=== PATIENT | female | born 1950 | race Caucasian/White ===

== ENCOUNTER 2018-05-25 10:00 | Inpatient (IN) | payer MEDICARE, OTHER ==
[~2018-05-25] VITALS: Ht 149.9 cm; Wt 89.5 kg
[~2018-05-25 10:00] MED LIST: ABILIFY2 MG PO; AMBIEN 10MG10 MG PO; AMITRIPTYLINE H25 M1 PO; ATIVAN 1MG T1 MG/TAB PO; BIRTH CONTROL; CARAFATE 1GM1 G PO; CELEXA40 MG PO; CLOPIDOGREL; CYMBALTA; DONNATAL; FIBER CHOICE1 CTB PO; FLEXERIL10 MG PO; FORTAMET500 MG PO; GLUCOPHAGE500 MG/TAB PO; IMODIUM 2MG CAPS2 MG PO; IMODIUM2 MG PO; K-DUR20 MEQ PO; LASIX 20MG TABL20 MG PO; LASIX 80MG TABL80 MG PO; LEXAPRO20 MG PO; LORTAB 10/500 51 TAB; MS CONTIN 115 MG/TAB PO; MS CONTIN 330 MG/TAB PO; NORCO 325 MG-101 TAB PO; PERCOCET 325 MG1 TA2 PO; POTASSIUM CH2 MEQ/ML; PRINIVIL2.5 MG PO; PROBIOTIC PO; PROTONIX 40MG T40 MG PO; REMERON 15M15 MG/TA1 PO; TOPROL XL25 MG PO; VYTORIN; ZOCOR 20MG20 MG PO
[2018-07-04] VITALS (11 sets, daily range): BP systolic 99–146; BP diastolic 42–78; PULSE 67–86; TEMP 98–99.6
[2018-07-04] MEDS ORDERED: PLAVIX 75MG TAB75 MG PO (06:17)
[2018-07-04] MEDS ORDERED: NEURONTIN600 MG/TAB PO (06:17)
--- NOTE | 2018-07-04 10:05 | NUR ---
PATIENT BACK IN ROOM 328 POST OP. A&O. VSS. DENIES PAIN. PATIENT IS UNABLE TO MOVE BLE AT THIS TIME. RTK DRESSING IS CD&I WITH AQUACEL AND TECHNOL BRACE INPLACE. TEDS & SCD'S TO BLE. POSITIVE PEDAL PULSES TO BLE. PARKS TO DEPENDENT DRAINAGE WITH SMALL AMOUNTS OF CLEAR YELLOW URINE NOTED. IV FLUIDS INFUSING VIA PUMP INTO RIGHT WRIST. NO C/O N/V. LIQUIDS AT BEDSIDE. BS 126. HEAD TO TOE ASSESSMENT WNL. NO OTHER NEEDS. CALL LIGHT IN REACH.
--- NOTE | 2018-07-04 10:44 | NUR ---
Initial visit attempt; Agricultural Equipment Sales Manager visited with family while patient was in surgical procedure. Agricultural Equipment Sales Manager will follow up with patient later.
--- NOTE | 2018-07-04 11:25 | NUR ---
PATIENT REPORTS SPINAL IS WEARING OFF. RATES PAIN IN RLE AT 6/10. GAVE PRN ROXICODONE, TWO TABS.
--- NOTE | 2018-07-04 12:25 | NUR ---
PATIENT STILL C/O PAIN IN RLE RATED AT 7/10. PATIENT HAS EXTENSIVE CHRONIC PAIN HISTORY. GAVE PRN IV MORPHINE 4MG PER ORDER. REPOSITIONED RLE WITH PILLOW AND ICE PACK.
--- NOTE | 2018-07-04 14:23 | NUR ---
NARCISO peacock met with patient to discuss discharge plan. Also present was patient's daughter (Sofi) and patient's sister (Veronica). Patient lives alone in [place]. Patient's PCP is Dr. Guzman and she uses the [email or web address] in [place]. Patient has a walker and reports independence with ADLs prior to hospitalization. Patient and patient's daughter state that patient has a completed DPOA-HC at home and it designates patient's daughter. In response to surgeon's social human services assistants consult, Doc is recommending home health for physical therapy and custodial. Patient was agreeable to this. NARCISO peacock presented the list of agencies that serve [place] from the Medicare.gov website. Patient and patient's daughter and sister would like to do some research and ask around before choosing. SW to continue to follow.
--- NOTE | 2018-07-04 17:11 | NUR ---
PATIENT CALLED OUT C/O SUDDENT ONSET NAUSEA. ENTERED ROOM TO FIND PATIENT VOMITED LARGE AMOUNTS ALL OVER HERSELF, BED & FLOOR. PATIENT CLEANED UP WITH COMPLETE BED CHANGE. PATIENT REPORTS SHE FEELS FINE. PATIENT STILL C/O SEVERE PAIN IN RLE. PATIENT RECEIVING SCHEDULED AND PRN PAIN MEDS. CURRENTLY TO EARLY TO GET MORE.
--- NOTE | 2018-07-04 20:00 | NUR ---
REPORT RECEIVED. ASSUMED CARE OF PATIENT FOR MASTER COSMETOLOGIST. ASSESSMENT COMPLETE. C/O PAIN RATED 10/10 ON PAIN SCALE. RECEIVED TWO TABS OF NORCO PER DR ORDER, WILL MONITOR EFFECT. REPOSITIONED WITH RIGHT KNEE ELEVATED-ICE PACK APPLIED. DRESSING TO RIGHT KNEE-CLEAN/DRY/INTACT. TECHNOL BRACE ON. CALL LIGHT WITHIN REACH. BED IN LOW POSITION-WHEELS LOCKED. ENCOURAGED TO CALL FOR CONCERNS. WILL MONITOR.
--- NOTE | 2018-07-05 02:00 | NUR ---
ATTEMPT MADE TO STAND AT SIDE OF BED. REPORTING NAUSEA/LIGHTHEADED/DIZZY. DID SIT ON EDGE OF BED. TOLERATED THAT OKAY. REPOSITIONED BACK IN BED WITH PILLOW SUPPORT/TECHNOL BRACE/ICE. WILL MONITOR.
[2018-07-05 04:24] VITALS: BP 140/63; PULSE 90; TEMP 98.4
--- NOTE | 2018-07-05 04:30 | NUR ---
HAS ONLY RESTED THE LAST FEW HOURS OF THIS SHIFT. C/O 10/10 PAIN MOST OF THE NIGHT-MEDICATION INTERVENTIONS DONE, REPOSITIONED WITH PILLOW SUPPORT, ICE PACKS APPIED AND TECHNOL BRACE ON. PAIN DID GET BETTER AFTER THE LAST DOSE ON DILAUDID GIVEN. CALLED TO NURSE STATION C/O PAIN ABOUT THIRTY MINUTES AGO-RATED IT 6/10. AFTER GETTING ROXICODONE FROM OMNICELL AND RETURNING TO ROOM-RESTING EYES CLOSED-AUDIBLE SNORING. NO S/S OF PAIN NOTED. DID NOT GIVE DOSE OF ROXICODONE AT THIS TIME DUE TO HAVING NORCO, DILAUDID AND ANA CRISTINA EARLIER IN THE NIGHT. VS ARE STABLE. WILL MONITOR.
--- NOTE | 2018-07-05 06:30 | NUR ---
Reported on to RACHEL Estrada. Pt moaning and laying supine in bed alert and oriented x 4. Incision to right knee dressed with ARUNA Dunn. C/O 8/10 stabbing, constant pain to anterior-medial aspect of right knee. Leg elevated on pillow with ice applied to affected site. Bilateral thigh-high ESDRAS hose and SCDs on. Rodriguez catheter secured with 1350 ml of clear, yellow urine in catheter bag. IV to right wrist running patently with 25 ml/hr normal saline. INT to left wrist is CDI. Assessment as charted and VSS.
[2018-07-05 07:05] VITALS: BP 124/55; PULSE 77; TEMP 99
--- NOTE | 2018-07-05 07:08 | NUR ---
awake resting in bed, bedside shift report received from RACHEL Pope
[2018-07-05 07:24] LABS: HEMOGLOBIN 10.6 g/dl (12.5-16.0)
[2018-07-05 07:25] LABS: HEMATOCRIT 32.3 % (37.0-47.0)
--- NOTE | 2018-07-05 08:00 | NUR ---
reassessed pain at 8/10 to right knee anterior. Pt requested pain medication for pain management. Scheduled MS Contin given. ESDRAS hose and SCDs removed bilaterally and patient assisted to recliner, legs elevated, ice applied to affected site and call light within reach.
--- NOTE | 2018-07-05 08:30 | NUR ---
assisted up to recliner by student nurse, tolerated fair
--- NOTE | 2018-07-05 09:42 | NUR ---
physical therapy in to work with patient, ambulated only short distance and then back to recliner
--- NOTE | 2018-07-05 09:45 | NUR ---
full assessment was completed, have reviewed assessment completed by student and in agreement with that assessment
--- NOTE | 2018-07-05 10:15 | NUR ---
Reassessed pain at 10/10 to right knee and assisted patient from recliner to bed, legs elevated on pillow, ice applied and call light within reach. Pain assessment reported to nurse.
--- NOTE | 2018-07-05 10:42 | NUR ---
resting in bed and c/o pain 10/28, medicated with hydrocodone 2.5mg 2 tabs
--- NOTE | 2018-07-05 11:26 | NUR ---
appears to be sleeping, in bed with eyes closed, resp quiet and easy
[2018-07-05 12:23] VITALS: BP 153/65; PULSE 82; TEMP 99.2
--- NOTE | 2018-07-05 12:33 | NUR ---
awake now and visiting with friends, continues to c/o pain and explained it is too early for pain meds, verbalizes understanding
--- NOTE | 2018-07-05 13:06 | NUR ---
NARCISO student met with patient to discuss home health options. Patient was still talking to some friends about different agencies and not ready to make a decision yet. Patient is staying tonight again so NARCISO student will follow up tomorrow.
--- NOTE | 2018-07-05 13:48 | NUR ---
Patient's daughter (Sofi) contacted NARCISO peacock via phone to discuss discharge plan. Patient and family are wanting to pursue SNF or swing bed now instead of home health. Patient feels unsafe to return home with only HH and cannot afford private duty services. NARCISO peacock informed patient's daughter of Medicare's policy regarding inpatient status and knee replacements and covering a skilled stay. Daughter was familiar as she works at [employer]. NARCISO peacock informed Christine (small machine bindery operator) of the new plan for a skilled stay. Christine is to contact patient's daughter to discuss. NARCISO to continue to follow.
--- NOTE | 2018-07-05 14:00 | NUR ---
ambulated back to room after therapy and into recliner, medicated with roxicodone 10mg for c/os pain 12/19, sadler catheter discontinue
--- NOTE | 2018-07-05 15:00 | NUR ---
called asking to go into bathroom, assisted into bathroom and voided qs then ambulated out of bathroom and into bed, moves with steady gait and only needed minimal assistance
--- NOTE | 2018-07-05 15:01 | NUR ---
NARCISO student met with patient to discuss post-acute rehab. Patient was agreeable if able to go. NARCISO student presented and explained the patient choice form. Patient verbalized understanding and signed. Patient chose 1) [facility] 2) [facility] and 3) [facility]. NARCISO student faxed referral to all three facilities. SW to continue to follow.
[2018-07-05 15:38] VITALS: BP 149/60; PULSE 81; TEMP 99
--- NOTE | 2018-07-05 17:02 | NUR ---
appears to be sleeping and awakened and given pm meds and c/o pain 10/28, medicated with hydrocodone 7.5mg 2 tabs
--- NOTE | 2018-07-05 18:54 | NUR ---
bedside shift report given to RACHEL Pope
[2018-07-05 20:46] VITALS: BP 130/53; PULSE 81; TEMP 99.6
[2018-07-06 04:38] VITALS: BP 141/69; PULSE 94; TEMP 98.2
--- NOTE | 2018-07-06 06:00 | NUR ---
HAS SLEPT MOST OF THE NIGHT WITH MINIMAL C/O PAIN. DID AMBULATE X1 LAST NIGHT WITH WALKER AND STANDBY ASSIST-APPROX 100 FEET-TOLERATED WELL. VOIDING WELL. UP TO BATHROOM AT THIS TIME. ESDRAS HOSE AND SCDS OFF. RATING PAIN 10/10 AFTER TRIP TO BATHROOM. ANGELINA TWO TABS GIVEN PER DR ORDER. ASSISTED BACK TO BED. WILL CONTINUE TO MONITOR.
[2018-07-06 06:57] LABS: HEMATOCRIT 32.4 % (37.0-47.0); HEMOGLOBIN 10.4 g/dl (12.5-16.0)
[2018-07-06 08:22] VITALS: BP 137/65; PULSE 86; TEMP 98.9
--- NOTE | 2018-07-06 08:28 | NUR ---
[facility] contacted student to inform that they have no female beds available at this time. NARCISO to check back in on Tuesday and continue to follow.
--- NOTE | 2018-07-06 08:29 | NUR ---
IV FROM RIGHT WRIST REMOVED PER PATIENT REQUEST. ADDITIONAL IV IN LEFT FOREARM STILL INTACT WITH NO PROBLEMS NOTED
[2018-07-06 12:17] VITALS: BP 131/53; PULSE 80; TEMP 98.1
--- NOTE | 2018-07-06 12:53 | NUR ---
Jill Beck is faxing an application for patient to fill out. [facility] is still waiting to see if their physician can follow, they are full currently but may have an opening by tomorrow. SW student to update patient and continue to follow.
--- NOTE | 2018-07-06 13:37 | NUR ---
Reported off to primary nurse Patricia RN.
--- NOTE | 2018-07-06 15:50 | NUR ---
SW provided [facility] application to patient and daughter to fill out. SW will fax the completed application.
[2018-07-06 16:00] VITALS: BP 110/44; PULSE 83; TEMP 98.8
--- NOTE | 2018-07-06 16:27 | NUR ---
NARCISO spoke with Yeni at [facility]. She reports thst they will be able to accept patient tomorrow.
--- NOTE | 2018-07-06 20:00 | NUR ---
REPORT RECEIVED. ASSUMED CARE FOR CLINICAL DATA MANAGEMENT MANAGER. ASSESSMENT COMPLETE. VS STABLE. RATING PAIN 7/10 TO RIGHT KNEE. WILL ADMINISTER NEXT DOSE OF NORCO. DRESSING AQUACELL WITH SMALL AMOUNT OF OLD DRAINAGE, CHUY BANDAGE COVERING. TECHNOL BRACE PLACED WITH PILLOW SUPPORT. FRESH ICE PACK APPLIED. DENIES NEEDS OF NOW. ENCOURAGED TO CALL FOR QUESTIONS OR CONCERNS. VERBALIZES UNDERSTANDING. WILL MONITOR.
[2018-07-06 20:02] VITALS: BP 128/49; PULSE 91; TEMP 99.3
[2018-07-07 01:57] VITALS: BP 119/67; PULSE 84; TEMP 98.5
--- NOTE | 2018-07-07 03:29 | NUR ---
HAS SLEPT THROUGH THE NIGHT. HAS NOT REQUESTED PAIN MEDICATIONS. NO S/S OF PAIN NOTED. VS HAVE BEEN STABLE. DID AMBULATE FOR THIS SHIFT APPROX 150 FEET. MUCH MORE STEADY THAN LAST NIGHT. WILL CONTINUE TO MONITOR.
--- NOTE | 2018-07-07 06:40 | NUR ---
appears to be sleeping, bedside shift report received from RACHEL Pope
[2018-07-07 07:18] VITALS: BP 138/60; PULSE 83; TEMP 97.7
[2018-07-07] MEDS ORDERED: ASPI325T6 PO (07:27)
--- NOTE | 2018-07-07 07:47 | NUR ---
Aquacell dressing removed from right knee, steri strips and white airstrip applied
--- NOTE | 2018-07-07 08:30 | NUR ---
awake and resting in bed, has had breakfast
--- NOTE | 2018-07-07 09:05 | NUR ---
physical therapy in to work with patient, ambulated out to jean baptiste and then back to room and to recliner
--- NOTE | 2018-07-07 09:48 | NUR ---
Fransisco student met with patient to complete IM form. FRANSISCO student presented and explained form. Patient verbalized understanding and signed. Patient denied copy. Patient is to discharge today (07/07) to [facility] for a skilled stay. Transportation via private car.
--- NOTE | 2018-07-07 10:05 | NUR ---
resting in chair, full assessment completed, have reviewed assessment completed by student and in agreement with that assessment
[2018-07-07 11:45] VITALS: BP 138/60; PULSE 83; TEMP 97.7
[2018-07-07 12:13] VITALS: BP 138/43; PULSE 85; TEMP 98.6
--- NOTE | 2018-07-07 13:30 | NUR ---
ready for discharge, discharge instructions given to mejia and her family, will call report to [facility], discharged per WC
== END 2018-07-07 13:30 | disposition swing bed (61) | DRG 470 ==
LOC: JCC 07-04 05:05
PROVIDERS: ADMIT Orthopaedic Surgery
PROC: 0SRC0J9 Replacement of Right Knee Joint with Synthetic Substitute, Cemented, Open Approach (ICD-10-PCS; principal; 2018-07-04 07:30)
DX: M17.11 Unilateral primary osteoarthritis, right knee (principal); G89.18 Other acute postprocedural pain; Z88.6 Allergy status to analgesic agent; Z88.8 Allergy status to other drugs, medicaments and biological substances; E11.9 Type 2 diabetes mellitus without complications; I10 Essential (primary) hypertension; E78.00 Pure hypercholesterolemia, unspecified; Z86.73 Personal history of transient ischemic attack (TIA), and cerebral infarction without residual deficits
CPT/HCPCS: A4314; A9284; C1713; C1776; J0690; J1170; J2250; J2270; J2704; J3010

== ENCOUNTER → 2018-06-21 | Outpatient (CLI) | payer MEDICARE | LOC: ZCOL.LAB 16:00 | DX: Z01.812 Encounter for preprocedural laboratory examination (principal) ==

== ENCOUNTER 2019-05-22 15:01 | Inpatient (IN) | payer MEDICARE, OTHER, MEDICAID ==
[~2019-05-22] VITALS: Ht 149.9 cm; Wt 58.1 kg
[~2019-05-22 15:01] MED LIST changes: +ASPI325T6 PO; +NEURONTIN600 MG/TAB PO; +PLAVIX 75MG TAB75 MG PO
[2019-09-19] VITALS (11 sets, daily range): BP systolic 116–151; BP diastolic 52–71; PULSE 70–94; TEMP 97.5–99.5
[2019-09-19] MEDS ORDERED: ELIQUIS 5MG PO (02:47)
--- NOTE | 2019-09-19 09:48 | NUR ---
First visit from the criminal investigator customs. Orthotic Assistant talked to daughter of patient. No needs right now.
--- NOTE | 2019-09-19 10:40 | NUR ---
PATIENT BACK IN ROOM 330 POST OP. ORIENTED BUT DROWSY. VSS. PATIENT WAS HAVING PAIN IN PACU AND WAS GIVEN SEVERAL PAIN AND NAUSEA MEDICATIONS. PATIENT HAS A HX OF CHRONIC PAIN WITH JAIL NARCOTIC USE. LTK DRESSING IS CD&I WITH ACEWRAP. TEDS TO RLE. SCD'S TO BLE. POSITIVE PEDAL PULSES TO BLE. NO PARKS AND PATIENT DENIES URGE TO VOID AT THIS TIME. IV FLUIDS INFUSING INTO RIGHT WRIST. N/V BETTER, EMESIS BAG AT BEDSIDE. BS WAS 115. LIQUIDS PROVIDED AT BEDSIDE. HEAD TO TOE ASSESSMENT WNL. DAUGHTER AT BEDSIDE. ORIENTED TO ROOM. CALL LIGHT IN REACH.
--- NOTE | 2019-09-19 12:25 | NUR ---
NARCISO met with the patient and her daughter, Sofi to complete initial intake. The patient lives alone in [place]. The patient has a cane and walker and is independent with ADLs. The patient's PCP is Dr. Catia Chavez and patient receives medications from [facility] with no difficulties. The patient has advanced directives in the EMR and they designate her daughter, Sofi and her son Jaya as secondary. The patient would like to try [facility] but if she does not qualify she will go home with [facility]. NARCISO provided Medicare.gov's list of commercial engineer that serve the [place] area. The patient will inform NARCISO of choice. NARCISO faxed referral to [facility]. Will continue to follow.
--- NOTE | 2019-09-19 15:30 | NUR ---
PATIENT CONTINUES TO C/O SEVERE PAIN IN LLE EVEN AFTER NORCO 10MG AND ULTRAM 100MG TABLETS WERE GIVEN. GAVE PRN MORPHINE IV. PLACED PATIENT INTO THE "TIME OUT" POSITION. WILL MONITOR.
--- NOTE | 2019-09-19 19:40 | NUR ---
Report received, assumed care for warehouse shift supervisor. Assessment complete. VS stable. Rating pain to left knee 20/10 on pain scale-described as continuous sharp stabbing. Tramadol 100mg given per dr order. Dressing to left knee-bulky white/shari-CDI. CMS WNL. Fresh ice pack applied. Refusing elevation stating its to painful. Also refusing SCDs. Plan of care discussed for ambulation this shift once pain is under control. Verbalizes understanding. Call light in reach. Will monitor.
--- NOTE | 2019-09-19 21:00 | NUR ---
Called to desk crying out in severe pain. States tramadol didnt touch her pain-rating damon 20/10 on pain scale-throbbing/stabbing-continuous. Currently to early for Dalton-morphine 4mg given IV per dr order. Will monitor.
--- NOTE | 2019-09-19 21:15 | NUR ---
This nurse to room to assist up to bathroom. Sat on side of bed and began to dry heave-no emesis. Still crying out in pain stating morphine is not helping. Discussed giving it a little more time to work. Refused to ambulate to bathroom-did use bedside commode-voided without difficulty. Assisted back to bed. Call light in reach.
--- NOTE | 2019-09-19 22:15 | NUR ---
Rating pain 20/10 on pain scale still after tramadol 100mg and morphine 4mg IV. Still to early for hydrocodone. Second dose of morphine given per dr order. Will monitor.
--- NOTE | 2019-09-19 22:40 | NUR ---
Emesis of 150mls-undigested food. Very restless in bed crying out in pain. Currently rating pain 15/10 on pain scale-described as throbbing/stabbing/burning. Hydrocodone given per dr order. Attempt made to reposition LLE with pillow support and fresh ice packs-refused elevation. Will continue to monitor pain level. Call light in reach.
--- NOTE | 2019-09-20 02:50 | NUR ---
Called nurses station c/o severe pain to left knee-rating pain 20/10-described as constant throbbing/ache. Tramadol 100mg given per dr order.
--- NOTE | 2019-09-20 03:25 | NUR ---
Called to desk asking for more Morphine stating the tramadol isnt working. Gave tramadol 30 minutes ago but states she cant wait another 30 min to see if it helps. Morphine 4mg given IV per dr order.
[2019-09-20 03:51] VITALS: BP 126/58; PULSE 91; TEMP 98.6
--- NOTE | 2019-09-20 04:00 | NUR ---
Resting eyes closed. NO s/s of distress noted.
--- NOTE | 2019-09-20 04:30 | NUR ---
Called to desk for help to bathroom. Refusing to ambulate to bathroom stating she wants the commode. C/O pain to left knee rating pain 10/10 on pain scale-described as constant throbbing. Hydrocodone given per dr order. Denies nausea/shortness of breath. VS remained stable this shift. Dressing to left knee remained CDI-bulky white/shari. SCD/ESDRAS to right lower extremity. Fresh ice has been applied. Call light in reach. Will monitor.
--- NOTE | 2019-09-20 05:49 | NUR ---
Resting eyes closed. Given AM dose of Gabapentin and started moaning in pain. Second dose of 1/2 tab of hydrocodone given per dr order. Rates pain 7/10 on pain scale-described as constant throbbing. Fresh ice pack applied. States pain is getting better. Call light in reach. Will monitor.
--- NOTE | 2019-09-20 08:00 | NUR ---
PATIENT IS A&O. VSS. PATIENT RATES PAIN IN LLE AT 8/10, EVEN AT REST AND WHEN SLEEPING. PATIENT HAS CHRONIC PAIN ISSUES. GAVE PRN ULTRAM, TWO TABS BEFORE AM THERAPY. PATIENT RESTING UP IN BED WITH LLE ELEVATED WITH PILLOWS AND ICE PACK INPLACE. TEDS TO BLE. POSITIVE PEDAL PULSES. LTK DRESSING IS CD&I WITH ACEWRAP. HEAD TO TOE ASSESSMENT WNL. NO C/O N/V. RIGHT WRIST IV TO INT. BREAKFAST AT BEDSIDE. AM BS WAS 147. NO OTHER NEEDS. CALL LIGHT IN REACH.
[2019-09-20 08:05] VITALS: BP 144/65; PULSE 86; TEMP 98.5
[2019-09-20 08:32] LABS: HEMOGLOBIN 10.6 g/dl (12.5-16.0)
[2019-09-20 08:33] LABS: HEMATOCRIT 33.5 % (37.0-47.0)
[2019-09-20 12:04] VITALS: BP 143/58; PULSE 83; TEMP 97.8
--- NOTE | 2019-09-20 13:49 | NUR ---
Patient sitting in recliner, working with therapy. Showered.
--- NOTE | 2019-09-20 14:52 | NUR ---
Patient called out to nurses station, states pain 6/10 to LLE. Medications given per orders.
--- NOTE | 2019-09-20 15:43 | NUR ---
SW met with patient to follow up about HH preference. Patient stated that her daughter was interested in the agency [facility]. SW contacted Miriam at [facility] and they report they do not assist patients with physical therapy. SW informed patient of this information. Patient reports that she and her daughter have chosen to pursue outpatient therapy services at [facility]. No additional needs at this time.
--- NOTE | 2019-09-20 16:15 | NUR ---
Patient continues to complain of pain to LLE. Repositioned patient, Ice pack to LLE. No further needs.
[2019-09-20 16:37] VITALS: BP 141/85; PULSE 94; TEMP 98.1
--- NOTE | 2019-09-20 17:17 | NUR ---
Notified Dr. Gee, patient complaining of increased pain requesting additional pain medication, states she typically takes 20 mg of norco at home so states that current medications are not helping with pain. No new orders at this time.
--- NOTE | 2019-09-20 18:15 | NUR ---
Additional dose of norco given per orders. Morphine given per Dr. Gee orders.
--- NOTE | 2019-09-20 18:58 | NUR ---
Patient states pain doing better now. Assisted to restroom with walker and 1 assist. Denies further needs at this time. Reported off to maintenance technician 2nd shift.
--- NOTE | 2019-09-20 20:00 | NUR ---
Assessment complete. Sitting up on bedside. Ambulated with walker and 1 standby assist @ 30 ft. C/O left knee feeling "stiff and tight". Requests chocolate ice cream, provided. Denies other needs at this time.
[2019-09-20 20:17] VITALS: BP 137/61; PULSE 90; TEMP 99.3
[2019-09-20 23:27] VITALS: BP 165/56; PULSE 102; TEMP 98.7
[2019-09-21 03:23] VITALS: BP 131/51; PULSE 95; TEMP 99.3
[2019-09-21 06:54] LABS: HEMATOCRIT 28.4 % (37.0-47.0); HEMOGLOBIN 9.1 g/dl (12.5-16.0)
[2019-09-21] MEDS ORDERED: ULTRAM 50MG TAB50 MG PO (07:38)
[2019-09-21] MEDS ORDERED: NORCO 325 MG-101 TAB PO (07:38)
[2019-09-21] MEDS ORDERED: SENOKOT S 50 MG1 TAB PO (07:39)
--- NOTE | 2019-09-21 08:00 | NUR ---
Patient in bed resting. Alert and oriented x 3. Assessment complete. Aquacel to left knee is CDI. Tedhose and SCDs to BLE. Denies further needs at this time.
[2019-09-21 08:13] VITALS: BP 131/59; PULSE 93; TEMP 99.3
--- NOTE | 2019-09-21 10:00 | NUR ---
Patient states pain is 8/10 to LLE. Medications were given per orders.
--- NOTE | 2019-09-21 10:04 | NUR ---
Notified Dr. Moon that patients spouse is here.
--- NOTE | 2019-09-21 12:15 | NUR ---
Patient called out to nurses station requesting pain meds after working with therapy. Medications given per orders.
--- NOTE | 2019-09-21 13:00 | NUR ---
Patient refusing lunch, states she would like to go out to eat with daughter when she picks her up
--- NOTE | 2019-09-21 13:09 | NUR ---
Left VM for Dr. Gee, patient is wanting to discharge.
[2019-09-21 13:30] VITALS: BP 139/61; PULSE 90; TEMP 98.5
--- NOTE | 2019-09-21 14:00 | NUR ---
Discharge education provided. Educated on activity and when to call provider. Educated on all new medications and signs and symptoms of infection. All questions answered. No further needs at this time. Patient out with surgical staff.
== END 2019-09-21 14:00 | disposition home or self-care (01) | DRG 470 ==
LOC: JCC 06-25 07:30
PROVIDERS: ADMIT Orthopaedic Surgery
PROC: 0SRD0J9 Replacement of Left Knee Joint with Synthetic Substitute, Cemented, Open Approach (ICD-10-PCS; principal; 2019-09-19 07:30)
DX: M17.12 Unilateral primary osteoarthritis, left knee (principal)
CPT/HCPCS: A9284; C1776; J0690; J2250; J2270; J2274; J2405; J2550; J2704; J3010; J7030; J7120

== ENCOUNTER 2019-11-20 06:50 | Day surgery (SDC) | payer MEDICARE, OTHER, MEDICAID ==
[~2019-11-20] VITALS: Ht 149.9 cm; Wt 82.7 kg
[~2019-11-20 06:50] MED LIST changes: +ELIQUIS 5MG PO; +SENOKOT S 50 MG1 TAB PO; +ULTRAM 50MG TAB50 MG PO
[2019-11-20 08:15] VITALS: BP 131/64; PULSE 78; TEMP 98.4
[2019-11-20] MEDS ORDERED: ZOLOFT 100MG100 MG PO (08:44)
[2019-11-20 10:41] VITALS: BP 168/76; PULSE 81
[2019-11-20 10:56] VITALS: BP 148/69; PULSE 81
--- NOTE | 2019-11-20 10:56 | NUR ---
Resting and sipping on water and eating muffin. Complains of left knee pain at rest. Ice on the left knee. +2 pedal pulse.
--- NOTE | 2019-11-20 11:02 | NUR ---
Medicated with [place] 7.5mg one tab for pain.
[2019-11-20 11:11] VITALS: BP 119/58; PULSE 83
--- NOTE | 2019-11-20 11:11 | NUR ---
Ice kept on the left knee. Denies increasing pain. Denies nausea.
--- NOTE | 2019-11-20 11:25 | NUR ---
States that she is having less pain and wants to go home. IV discontinued and assisted patient with dressing. Dismissal instructions given and verbalizes understanding of these. Provided P.T. script and will begin physical therapy 11/21/2019.
--- NOTE | 2019-11-20 11:29 | NUR ---
Patient dismissed to home driven by sister and taken to the front door per wheelchair and assisted into car by this RN with dismissal instructions in hand.
== END 2019-11-20 11:29 | disposition home or self-care (01) ==
LOC: SDCO
DX: M24.662 Ankylosis, left knee (principal); Z96.653 Presence of artificial knee joint, bilateral; Z20.828 Contact with and (suspected) exposure to other viral communicable diseases; Z09 Encounter for follow-up examination after completed treatment for conditions other than malignant neoplasm; E11.9 Type 2 diabetes mellitus without complications; F32.9 Major depressive disorder, single episode, unspecified; I10 Essential (primary) hypertension; E78.5 Hyperlipidemia, unspecified; I49.9 Cardiac arrhythmia, unspecified; E78.00 Pure hypercholesterolemia, unspecified; F41.9 Anxiety disorder, unspecified; G43.909 Migraine, unspecified, not intractable, without status migrainosus; G89.29 Other chronic pain; G47.33 Obstructive sleep apnea (adult) (pediatric); Z86.73 Personal history of transient ischemic attack (TIA), and cerebral infarction without residual deficits; Z86.718 Personal history of other venous thrombosis and embolism; Z90.710 Acquired absence of both cervix and uterus; Z96.82 Presence of neurostimulator; Z82.49 Family history of ischemic heart disease and other diseases of the circulatory system; Z82.5 Family history of asthma and other chronic lower respiratory diseases; Z88.5 Allergy status to narcotic agent; Z88.8 Allergy status to other drugs, medicaments and biological substances; Z79.01 Long term (current) use of anticoagulants; Z90.49 Acquired absence of other specified parts of digestive tract; Z79.84 Long term (current) use of oral hypoglycemic drugs
CPT/HCPCS: J2704; J3010; J7030

== ENCOUNTER → 2021-07-01 | Outpatient (CLI) | payer OTHER, MEDICAID, MEDICARE ==
[~2021-07-01] MED LIST changes: +ZOLOFT 100MG100 MG PO
== END ==
LOC: MHCPAIN 09:16
DX: M47.896 Other spondylosis, lumbar region (principal); M53.3 Sacrococcygeal disorders, not elsewhere classified; M54.50 Low back pain, unspecified; M96.1 Postlaminectomy syndrome, not elsewhere classified
CPT/HCPCS: G0463

== ENCOUNTER → 2021-07-16 | Outpatient (CLI) | payer OTHER, MEDICAID, MEDICARE | LOC: MHCPAIN 11:45 | DX: M47.817 Spondylosis without myelopathy or radiculopathy, lumbosacral region (principal); M54.50 Low back pain, unspecified; M53.3 Sacrococcygeal disorders, not elsewhere classified ==

== ENCOUNTER → 2021-07-27 | Outpatient (CLI) | payer OTHER, MEDICAID, MEDICARE | LOC: MHCPAIN 12:36 | DX: M47.817 Spondylosis without myelopathy or radiculopathy, lumbosacral region (principal); M54.50 Low back pain, unspecified; M53.3 Sacrococcygeal disorders, not elsewhere classified | CPT/HCPCS: G0463 ==

== ENCOUNTER → 2021-08-27 | Outpatient (CLI) | payer MEDICARE, MEDICAID | LOC: MHCPAIN 12:28 | DX: M47.817 Spondylosis without myelopathy or radiculopathy, lumbosacral region (principal); M54.50 Low back pain, unspecified | CPT/HCPCS: G0463; J2250; J3010 ==